=== PATIENT | female | born 1945 | race African-American/Black ===

== ENCOUNTER 2018-07-02 10:30 | Outpatient (RCR) | payer MEDICARE, OTHER | END 2018-07-03 | disposition home or self-care (01) | LOC: PTY 10:30 | DX: M54.40 Lumbago with sciatica, unspecified side (principal) | CPT/HCPCS: 97162; G8978; G8979 ==

== ENCOUNTER 2018-07-05 10:15 | Outpatient (RCR) | payer MEDICARE, OTHER | END 2018-08-02 | disposition home or self-care (01) | LOC: PTY 10:15 | DX: M54.40 Lumbago with sciatica, unspecified side (principal) ==